=== PATIENT | female | born 1995 | race African-American/Black ===

== ENCOUNTER 2019-06-10 20:44 | Emergency (ER) | payer OTHER ==
[~2019-06-10] VITALS: Ht 165.1 cm; Wt 137.4 kg
[2019-06-10 21:06] VITALS: Ht 165.1 cm; Wt 137.4 kg
[2019-06-11 00:11] VITALS: BP 121/79
== END 2019-06-11 00:11 | disposition home or self-care (01) ==
LOC: ED 20:44
DX: M79.672 Pain in left foot (principal); M79.671 Pain in right foot